=== PATIENT | male | born 1975 | race Caucasian/White ===

== ENCOUNTER 2016-08-11 04:39 | Emergency (ER) | payer BC ==
[~2016-08-11] VITALS: Ht 180.3 cm; Wt 96.1 kg
[2016-08-11 04:43] VITALS: Ht 180.3 cm; Wt 96.1 kg
[2016-08-11 04:48] VITALS: O2SAT 99
[2016-08-11 05:11] LABS: HEMATOCRIT 44.9 % (42-52); MEAN CELL VOLUME 82.7 fL (80-100); MEAN CORPUSCULAR HGB CONC 36.3 g/dl (32-36); MEAN PLATELET VOLUME 9.7 fL (7.4-10.4); PLATELET COUNT 212 K/uL (130-400); RED BLOOD COUNT 5.43 M/uL (4.7-6.1); WHITE BLOOD COUNT 5.79 K/uL (4.8-10.8)
[2016-08-11 05:29] LABS: BUN/CREATININE RATIO 12.9 (10-20); CALCIUM 8.5 mg/dl (8.5-10.1); CREATININE 0.83 mg/dl (0.60-1.40); POTASSIUM 3.5 mmol/L (3.5-5.1)
[2016-08-11 05:40] LABS: THYROID STIMULATING HORMONE 3.6 uIu/ml (0.300-4.500)
[2016-08-11] MEDS ORDERED: OPTIRAY 320 IV PRN (05:45)
[2016-08-11 06:06] LABS: BASO % 0.3 %; BASO ABS # 0.02 K/uL (0-0.2); COMPLETE YES; EOS % 3.1 %; IG% 0.2 %; LYMPH % 54.4 %; LYMPH ABS # 3.15 K/uL (1.2-3.4); MONO % 8.5 %; NEUT % 33.5 %
--- NOTE | 2016-08-11 06:17 | EMERGENCY ROOM VISIT NOTE ---
History First contact with patient: 04:46 Chief Complaint: RAPID HEART RATE Stated Complaint: RAPID HEART BEAT,CHEST DISCOMFORT History of Present Illness The patient is a 41 year old male who presents to the Emergency Room with complaints of palpitations this morning and the other day that lasted for a few minutes. Patient saw the family care provider and had an unremarkable workup. He is supposed to be getting a Holter monitor. Symptoms returned again to the ER for further evaluation and treatment. Patient states he woke up from sleep with palpitations. While driving here he developed some chest discomfort that is now pretty much resolved. Patient denies fever, chills, dyspnea, back pain, jaw pain, neck pain, leg pain or swelling, abdominal pain, lightheadedness, dizziness, diaphoresis, nausea, vomiting, diarrhea. The family doctor tried omeprazole for her symptoms with no relief of symptoms. No family history of heart disease or clots. Patient denies diabetes, blood pressure, tobacco use. Patient states he runs 1 mile twice a week with no difficulties. Review of Systems See HPI for pertinent positives & negatives. A total of 10 systems reviewed and were otherwise negative. Past Medical/Surgical History Hyperlipidemia Social History Smoking Status: Never Smoker Smokeless Tobacco Use: No Alcohol Use: none Drug Use: none Marital Status: Housing Status: lives with family Occupation Status: employed Current/Historical Medications Miscellaneous Medications None (Patient States No Home Meds) Allergies Coded Allergies: Erythromycin (Verified Allergy, SEVERE STOMACH PAIN, 02/24/11) NUTS (Verified Allergy, UKN, 02/24/11) Physical Exam Vital Signs Date Time Temp Pulse Resp B/P Pulse Ox O2 Delivery O2 Flow Rate FiO2 08/11/16 06:00 71 18 127/85 96 Room Air 08/11/16 05:30 64 19 122/77 96 08/11/16 05:01 141/82 08/11/16 05:00 65 21 97 08/11/16 05:00 97 Room Air 08/11/16 05:00 Room Air 08/11/16 04:55 88 08/11/16 04:48 99 Room Air 08/11/16 04:43 36.5 74 18 150/85 98 Room Air Physical Exam VITALS: Vitals are noted on the nurse's note and reviewed by myself. Vital signs stable. GENERAL: Pleasant anxious-appearing male, in no acute distress, nondiaphoretic, well-developed well-nourished. SKIN: The skin was without rashes, erythema, edema, or bruising. There is no tenting of the skin. Capillary reflex less than 2 seconds. HEAD: Normocephalic atraumatic. EARS: External auditory canals clear, tympanic membranes pearly bear without erythema or effusion bilaterally. EYES: Pupils equal round and reactive to light and accommodation. Conjunctivae without injection, sclerae without icterus. Extraocular movements intact. NOSE: Patent, turbinates without inflammation or discharge. MOUTH: Mucous membranes moist. Pharynx without erythema or exudate. Uvula midline. Airway patent. Tongue does not deviate. NECK: Supple without nuchal rigidity. No lymphadenopathy. No thyromegaly. Cervical spine is nontender. No JVD. HEART: Regular rate and rhythm without murmurs gallops or rubs. Chest nontender to palpation LUNGS: Clear to auscultation bilaterally without wheezes, rales or rhonchi. No dullness to percussion. No retractions or accessory muscle use. ABDOMEN: Positive bowel sounds x 4. Normal tympanic percussion. Soft, nontender, without masses or organomegaly. Tong sign negative. No guarding or rebound tenderness. MUSCULOSKELETAL: No muscle atrophy, erythema, or edema noted. NEURO: Patient was alert and oriented to person place and time. Normal sensation to light and sharp touch. No focal neurological deficits. Medical Decision & Procedures Laboratory Results 08/11/16 04:50 Red Blood Count 5.43, Mean Corpuscular Volume 82.7, Mean Corpuscular Hemoglobin 30.0, Mean Corpuscular Hemoglobin Concent 36.3, Mean Platelet Volume 9.7, Neutrophils (%) (Auto) 33.5, Lymphocytes (%) (Auto) 54.4, Monocytes (%) (Auto) 8.5, Eosinophils (%) (Auto) 3.1, Basophils (%) (Auto) 0.3, Neutrophils # (Auto) 1.94, Lymphocytes # (Auto) 3.15, Monocytes # (Auto) 0.49, Eosinophils # (Auto) 0.18, Basophils # (Auto) 0.02 08/11/16 04:50 Test 08/11/16 04:50 08/11/16 05:04 White Blood Count 5.79 K/uL (4.8-10.8) Red Blood Count 5.43 M/uL (4.7-6.1) Hemoglobin 16.3 g/dL (14.0-18.0) Hematocrit 44.9 % (42-52) Mean Corpuscular Volume 82.7 fL (80-100) Mean Corpuscular Hemoglobin 30.0 pg (25-34) Mean Corpuscular Hemoglobin Concent 36.3 g/dl (32-36) Platelet Count 212 K/uL (130-400) Mean Platelet Volume 9.7 fL (7.4-10.4) Neutrophils (%) (Auto) 33.5 % Lymphocytes (%) (Auto) 54.4 % Monocytes (%) (Auto) 8.5 % Eosinophils (%) (Auto) 3.1 % Basophils (%) (Auto) 0.3 % Neutrophils # (Auto) 1.94 K/uL (1.4-6.5) Lymphocytes # (Auto) 3.15 K/uL (1.2-3.4) Monocytes # (Auto) 0.49 K/uL (0.11-0.59) Eosinophils # (Auto) 0.18 K/uL (0-0.5) Basophils # (Auto) 0.02 K/uL (0-0.2) RDW Standard Deviation 38.3 fL (36.4-46.3) RDW Coefficient of Variation 12.9 % (11.5-14.5) Immature Granulocyte % (Auto) 0.2 % Immature Granulocyte # (Auto) 0.01 K/uL (0.00-0.02) Anion Gap 7.0 mmol/L (3-11) Est Creatinine Clear Calc Drug Dose 139.9 ml/min Estimated GFR () 127.6 Estimated GFR (Non- 110.1 BUN/Creatinine Ratio 12.9 (10-20) Calcium Level 8.5 mg/dl (8.5-10.1) Magnesium Level 2.0 mg/dl (1.8-2.4) Total Bilirubin 0.5 mg/dl (0.2-1) Direct Bilirubin 0.1 mg/dl (0-0.2) Aspartate Amino Transf (AST/SGOT) 26 U/L (15-37) Alanine Aminotransferase (ALT/SGPT) 32 U/L (12-78) Alkaline Phosphatase 68 U/L (45-117) Total Protein 7.5 gm/dl (6.4-8.2) Albumin 3.7 gm/dl (3.4-5.0) Lipase 220 U/L (73-393) Thyroid Stimulating Hormone (TSH) 3.600 uIu/ml (0.300-4.500) Bedside D-Dimer > 450 ng/mlFEU (0-450) Bedside Troponin I 0.000 ng/ml (0-0.045) ED Course Prior records/ancillary studies reviewed. Triage Nursing notes reviewed. Additional history obtained from family. The patient's history was concerning for palpitations. Differential diagnosis: Etiologies such as premature contractions, electrolyte abnormality, cardiac dysrhythmia, cardiac, thyroid dysfunction, pulmonary embolism, infection, gastrointestinal, as well as others were entertained. Physical examination: Benign as above. ER treatment provided: Patient was observed On reassessment the patient felt better. Diagnostic interpretation by me: Cardiac monitoring revealed no dysrhythmia. The electrocardiogram was negative for pathologic change. Normal sinus, normal intervals, no acute ST-T wave changes. Impression normal sinus rhythm interpreted by myself The labs revealed elevated d-dimer and sent for CTA. Negative troponin, euthyroid Imaging studies: Chest x-ray with no acute consolidation, pneumothorax or free air per my interpretation. CTA is negative for PE per stat radiology This appears to be consistent with palpitations. Patient had unremarkable workup as above. Negative troponin. Normal EKG. He was advised to follow-up with family care for outpatient Holter monitor as recommended by the family care doctor. He was advised to return to the ER me for chest pain, difficulty breathing, prolonged palpitations, worsening signs or symptoms or as needed. By the evaluation outlined above emergent etiologies such as electrolyte abnormality, cardiac dysrhythmia, thyroid dysfunction, pulmonary embolism, infection, as well as others were deemed relatively unlikely. The pt informed about the findings as listed above. All questions were answered and pleased with the treatment. Return instructions were outlined and the patient was discharged in stable condition. Case reviewed with my attending. Referral: The patient was referred back to their primary care physician for follow-up in 2 to 3 days for a recheck of the current condition Medical Decision As above Impression Primary Impression: Palpitations Departure Information Dispostion Home / Self-Care Condition GOOD Referrals Keiter, Franklin K.,DO (PCP) Patient Instructions My [facility] Additional Instructions Recommend outpatient Holter monitor with family care doctor. Decrease stress. Ibuprofen(Motrin, Advil) may be used for fever or pain. Use 600mg every six hours as needed. Take with food. Avoid using more than 2400mg in a 24 hour period. Do not use 2400mg per day for more than three consecutive days without physician direction. Prolonged inappropriate use can lead to stomach upset or ulcers. (AND/OR) Acetaminophen(Tylenol) may be used for fever or pain. Use 1000mg every six hours as needed. Avoid using more than 3000mg in a 24 hour period. Rest and drink plenty of fluids as tolerated. Continue current medications. Avoid strenuous activities and anything that worsens your symptoms. Resume normal activities once your symptoms resolve. Return to the ER immediately for worsening or persistent palpitations, abdominal pain, vomiting, fevers, chest pains, difficulty breathing, worsening of your condition, or as needed. Follow up with your primary physician in 2-3 days for a recheck of your current condition.
[2016-08-11 06:29] LABS: BASO ABS # 0.06 K/uL (0-0.2); LYMPH ABS # 1.68 K/uL (1.2-3.4); VARIANT LYM ABS # 1.62 K/uL
[2016-08-11 06:32] VITALS: BP 127/85; PULSE 71; TEMP 36.5; O2SAT 96
--- NOTE | 2016-08-11 08:23 | DIAGNOSTIC IMAGING REPORT ---
CHEST ONE VIEW PORTABLE CLINICAL HISTORY: Chest pain. COMPARISON STUDY: Chest radiograph May 21, 2011. FINDINGS: Lung volumes are normal. There is no consolidation. There is no pneumothorax or pleural effusion. Cardiomediastinal silhouette is normal. There is an azygos fissure. IMPRESSION: No acute cardiopulmonary findings. Electronically signed by: Flavio Ma M.D. 08/11/2016 8:20 AM Dictated Date/Time: 08/11/2016 8:20 AM
--- NOTE | 2016-08-11 08:26 | DIAGNOSTIC IMAGING REPORT ---
CT ANGIOGRAPHY OF THE CHEST, PULMONARY EMBOLUS PROTOCOL CLINICAL HISTORY: Chest pain, tachycardia and elevated d-dimer. COMPARISON STUDY: Chest radiograph May 21, 2011 and August 11, 2016. TECHNIQUE: Following IV administration of 93 mL of Optiray-320, helical axial images of the chest were obtained utilizing the pulmonary embolus protocol. Maximal intensity projections and sagittal and coronal reformats were viewed on an independent 3D workstation. IV contrast was administered without complication. CT DOSE: 483.80 mGy.cm FINDINGS: No pulmonary emboli are identified. There is no evidence of thoracic aortic dissection. The size of the heart is at the upper limits of normal. There is no pericardial effusion. No enlarged thoracic lymph nodes are present. There is no consolidation. No pneumothorax or pleural effusion is present. There are several punctate left renal calculi. IMPRESSION: 1. No pulmonary emboli identified. 2. No acute intrathoracic findings. 3. Left-sided nephrolithiasis. Electronically signed by: Flavio Ma M.D. 08/11/2016 8:24 AM Dictated Date/Time: 08/11/2016 8:21 AM
== END 2016-08-11 06:33 | disposition home or self-care (01) ==
LOC: C.EDB 04:40 → C.EDA 06:33
DX: R00.2 Palpitations (principal); E78.5 Hyperlipidemia, unspecified; Z88.8 Allergy status to other drugs, medicaments and biological substances; Z91.018 Allergy to other foods